=== PATIENT | female | born 1940 | race Asian ===

== ENCOUNTER 2020-11-16 17:31 | Emergency (ER) | payer MEDICAID, MEDICARE ==
[~2020-11-16] VITALS: Ht 154.9 cm; Wt 54.5 kg
[2020-11-16] MEDS ORDERED: ANAS1TAB50 PO (17:49)
[2020-11-16] MEDS ORDERED: HYDR25TA2 PO (17:49)
[2020-11-16] MEDS ORDERED: LISI-894 PO (17:49)
[2020-11-16] MEDS ORDERED: HYDR25TA84 PO (17:49)
[2020-11-16] MEDS ORDERED: GLIP5 PO (17:49)
[2020-11-16] MEDS ORDERED: ATOR20TA86 PO (17:49)
[2020-11-16 21:09] LABS: BASOPHILS % (AUTO) 1.1 % (0.0-2.0); EOSINOPHILS % (AUTO) 2.9 % (1.0-6.0); HEMATOCRIT 34.2 % (36-46); HEMOGLOBIN 11.4 g/dL (12.0-16.0); LYMPHOCYTES # (AUTO) 2.2 K/uL (1.0-4.8); LYMPHOCYTES % (AUTO) 27.7 % (22.0-44.0); MEAN CORPUSCULAR HEMOGLOBIN 32.6 pg (26.0-34.0); MEAN CORPUSCULAR HGB CONC 33.2 G/dL (31.0-37.0); MEAN CORPUSCULAR VOLUME 98 fL (80-100); MONOCYTES # (AUTO) 0.6 K/uL (0.1-1.0); MONOCYTES % (AUTO) 7.5 % (2.0-9.0); NEUTROPHILS # (AUTO) 4.7 K/uL (1.8-7.7); NEUTROPHILS % (AUTO) 60.8 % (40.0-70.0); PLATELET COUNT (AUTO) 245 K/uL (150-450); RED BLOOD CELL COUNT(AUTO) 3.48 MIL/uL (4.00-5.20); RED CELL DISTRIBUTION WIDTH 15.3 % (11.5-14.5)
[2020-11-16 21:23] LABS: CALCIUM, TOTAL 9.4 mg/dL (8.8-10.5); CREATININE 0.9 mg/dL (0.60-1.30); POTASSIUM 3.4 mmol/L (3.5-5.1)
[2020-11-16 21:28] LABS: ALBUMIN 3.6 g/dL (3.4-5.0); BILIRUBIN,TOTAL 0.8 mg/dL (0.1-1.0)
[2020-11-16] MEDS ORDERED: POTASSIUM CHLORIDE 10% 40 MEQ/30 ML LIQUID UDCUP PO ONE (21:30)
[2020-11-16 21:57] VITALS: BP 165/83
== END 2020-11-16 22:15 | disposition home or self-care (01) ==
LOC: EMS 17:38
DX: E87.6 Hypokalemia (principal); R60.0 Localized edema
CPT/HCPCS: 80053; 84484; 85025; 93005; 99283; 99284